=== PATIENT | male | born 1965 | race Caucasian/White ===

== ENCOUNTER 2021-11-05 15:52 | Emergency (ER) | payer SELFPAY ==
[2021-11-05] MEDS ORDERED: Acetaminophen 500 MG TAB ONE (16:30)
[2021-11-05] MEDS ORDERED: Metoprolol Tartrate 50 MG TAB ONE (16:30)
[2021-11-05 16:42] LABS: #Basophils 0.2 thou/uL (0.0-0.2); #Lymphocytes 1.4 thou/uL (1.20-3.40); #Monocytes 1.6 thou/uL (0.11-0.59); #Neutrophils 10.6 thou/uL (1.40-6.50); %Basophils 1.1 % (0.0-1.0); %Eosinophils 0.3 % (0.0-10.0); %Lymphocytes 10.4 % (21.0-51.0); %Monocytes 11.5 % (0.0-10.0); %Neutrophils 76.7 % (42.0-75.0); Hemoglobin 15.3 g/dL (14.0-18.0); Mean Corpuscular HGB CONC 31.7 g/dL (32.0-36.0); Mean Corpuscular Hemoglobin 32.6 pg (27.0-31.0); Mean Platelet Volume 7.1 fL (7.4-10.4); Platelet Count 215 thou/uL (130-400); White Blood Cell (WBC) Count 13.9 thou/uL (4.8-10.8)
[2021-11-05 16:59] LABS: ALT (SGPT) 156 U/L (8-55); AST (SGOT) 130 U/L (5-34); Albumin 4.4 g/dL (3.5-5.0); Alkaline Phosphatase 105 U/L (40-110); Anion Gap 17 mmol/L (10-20); BUN (Urea Nitrogen) 24 mg/dL (8.4-25.7); Bilirubin, Total 1.5 mg/dL (0.2-1.2); Calc. Creatinine Clearance 0 mL/min (70-130); Calcium 9.7 mg/dL (7.8-10.44); Carbon Dioxide 28 mmol/L (22-29); Chloride 98 mmol/L (98-107); Globulin 4.1 g/dL (2.4-3.5); Glucose 100 mg/dL (70-105); Potassium 4.5 mmol/L (3.5-5.1); Protein, Total 8.5 g/dL (6.0-8.3); Sodium 138 mmol/L (136-145)
[2021-11-05 17:00] LABS: Acetaminophen Less than 6.0 mcg/mL (10.0-30.0); Alcohol Less than 10 mg/dL (Less than 10); CK (CPK) 329 U/L (30-200); Salicylate Less than 8.0 mg/dL (15.0-30.0)
[2021-11-05] MEDS ORDERED: Sodium Chloride 0.9% 1,000 ML ONE (17:18)
[2021-11-05 17:23] LABS: CKMB 7.5 ng/mL (0-6.6)
[2021-11-05 17:26] LABS: Amphetamine Not Detected (NotDetected); Barbiturates Screen Not Detected (NotDetected); Benzodiazepine Screen Not Detected (NotDetected); Bilirubin Small (Negative); Blood, Urine Small (Negative); Cocaine Metabolite Screen Not Detected (NotDetected); Glucose, Urine (Dipstick) Negative (Negative); Ketone, Urine 15 mg/dL (Negative); Leukocyte Negative (Negative); Methadone Not Detected (NotDetected); Methamphetamine Not Detected (NotDetected); Nitrite Negative (Negative); Opiate Screen Not Detected (NotDetected); Phencyclidine (PCP) Not Detected (NotDetected); Protein, Urine (Dipstick) 100 mg/dL (Neg-Trace); THC/Cannabinoid Screen Detected (NotDetected); Tricyclic Screen Not Detected (NotDetected); Urobilinogen 0.2 mg/dL (Less than 2); pH, Urine 5.5 (5.0-9.0)
[2021-11-05 17:27] LABS: Medtox Control Line Valid? VALID (VALID); Oxycodone Screen Not Detected (NotDetected)
[2021-11-05 17:36] LABS: Clarity Hazy (Clear)
[2021-11-05 17:42] LABS: Squamous Epithelial 0-3 HPF (0-3); WBC/HPF 0-3 HPF (0-3)
[2021-11-05 17:43] LABS: Bacteria/HPF 1+ HPF (None Seen)
[2021-11-05 19:34] LABS: CKMB 7.2 ng/mL (0-6.6)
== END 2021-11-05 19:52 ==
LOC: MADERS 15:52
DX: I21.4 Non-ST elevation (NSTEMI) myocardial infarction (principal); R51.9 Headache, unspecified; I10 Essential (primary) hypertension
CPT/HCPCS: 36415; 80053; 80306; 80307; 81003; 81015; 82550; 82553; 83605; 84484; 85025; 86140; 93005; J7050

== ENCOUNTER 2024-03-21 05:44 | Emergency (ER) | payer OTHER ==
[2024-03-21 06:35] LABS: #Basophils 0.1 thou/uL (0.0-0.2); #Eosinphils 0.5 thou/uL (0.0-0.7); #Lymphocytes 1.8 thou/uL (1.20-3.40); %Basophils 1.4 % (0.0-1.0); %Eosinophils 5.6 % (0.0-10.0); %Lymphocytes 19.3 % (21.0-51.0); %Monocytes 10.4 % (0.0-10.0); %Neutrophils 63.4 % (42.0-75.0); Hematocrit 46.7 % (42.0-52.0); Hemoglobin 14.1 g/dL (14.0-18.0); Mean Corpuscular HGB CONC 30.1 g/dL (32.0-36.0); Mean Corpuscular Volume 96.2 fl (78.0-98.0); Mean Platelet Volume 7.7 fL (7.4-10.4); Platelet Count 284 10x3/uL (130-400); RBC Distribution Width 14.9 % (11.5-14.5); Red Blood Cell (RBC) Count 4.86 mill/uL (4.70-6.10); White Blood Cell (WBC) Count 9.5 10x3/uL (4.8-10.8)
[2024-03-21 06:51] LABS: ALT (SGPT) 19 U/L (8-55); AST (SGOT) 18 U/L (5-34); Albumin 4.3 g/dL (3.5-5.0); Alkaline Phosphatase 123 U/L (40-110); Anion Gap 17 mmol/L (10-20); BUN (Urea Nitrogen) 18 mg/dL (8.4-25.7); Bilirubin, Total 0.4 mg/dL (0.2-1.2); Calc. Creatinine Clearance 0 mL/min (70-130); Calcium 9.6 mg/dL (7.8-10.44); Carbon Dioxide 26 mmol/L (22-29); Chloride 99 mmol/L (98-107); Estimated GFR 63; Globulin 3.5 g/dL (2.4-3.5); Glucose 84 mg/dL (70-105); Potassium 4.9 mmol/L (3.5-5.1); Protein, Total 7.8 g/dL (6.0-8.3); Sodium 137 mmol/L (136-145)
[2024-03-21] MEDS ORDERED: hydrALAZINE 20 MG/ML VIAL ONE (07:20)
[2024-03-21] MEDS ORDERED: Acetaminophen 500 MG TAB ONE (08:07)
[2024-03-21] MEDS ORDERED: Ketorolac Tromethamine 30 MG (1 mL) VIAL ONE (08:07)
== END 2024-03-21 09:00 ==
LOC: MADERS 05:44
DX: R55 Syncope and collapse (principal); G89.29 Other chronic pain; M54.9 Dorsalgia, unspecified; I10 Essential (primary) hypertension; Z79.899 Other long term (current) drug therapy
CPT/HCPCS: 70450; 72100; 80053; 85025; 93005; 96374; 96375; J0360; J1885